=== PATIENT | male | born 1985 | race African-American/Black ===

== ENCOUNTER 2019-03-19 09:25 | Emergency (ER) | payer SELFPAY ==
[~2019-03-19] VITALS: Ht 182.9 cm; Wt 67.6 kg
[2019-03-19 10:17] VITALS: BP 119/60
== END 2019-03-19 14:05 | disposition home or self-care (01) ==
LOC: ER 09:25
DX: R05 Cough (principal); R09.81 Nasal congestion; R07.0 Pain in throat

== ENCOUNTER 2019-04-04 09:16 | Emergency (ER) | payer SELFPAY ==
[~2019-04-04] VITALS: Ht 182.9 cm; Wt 68.0 kg
[2019-04-04 09:25] VITALS: BP 106/67
== END 2019-04-04 10:58 | disposition home or self-care (01) ==
LOC: ER 09:20
DX: J06.9 Acute upper respiratory infection, unspecified (principal)